=== PATIENT | female | born 1985 | race Caucasian/White ===

== ENCOUNTER 2017-01-09 08:51 | Outpatient (CLI) | payer MEDICAID ==
[~2017-01-09 08:51] MED LIST: BACTRIM DS 8001 TAB PO; CEPHALEXIN500 M1 PO; CLEOCIN HCL300 MG PO; NO HOME MEDICATIONS; NORCO 325 MG-51 TAB PO; PERCOCET 325 MG1 TA2 PO; PRENATAL1 TA5 PO
[2017-01-09] MEDS ORDERED: PRENATAL (09:10)
[2017-01-09 09:15] VITALS: BP 127/61; PULSE 76; TEMP 97.6
== END 2017-01-09 09:45 | disposition home or self-care (01) ==
LOC: LDRO 08:51
DX: O99.89 Other specified diseases and conditions complicating pregnancy, childbirth and the puerperium (principal); R10.9 Unspecified abdominal pain; Z3A.00 Weeks of gestation of pregnancy not specified

== ENCOUNTER 2017-01-17 14:43 | Outpatient (CLI) | payer MEDICAID, OTHER ==
[~2017-01-17] VITALS: Ht 175.3 cm; Wt 151.8 kg
[~2017-01-17 14:43] MED LIST changes: +PRENATAL
[2017-01-17 14:56] VITALS: BP 124/80; PULSE 85; TEMP 98.1
[2017-01-17 15:00] VITALS: BP 124/80; PULSE 85; TEMP 98.1
[2017-01-17 15:15] LABS: BASO % 0.3 % (0.0-2.0); EOS # 0.1 (0.0-0.7); EOS % 0.6 % (0-4.0); GRAN # 7.6 (1.4-6.5); GRAN % 68.2 % (42.2-75.2); HEMATOCRIT 39.6 % (37.0-47.0); HEMOGLOBIN 13.4 g/dl (12.5-16.0); LYMPH # 2.6 (1.2-3.4); LYMPH % 23.3 % (20.0-51.0); MEAN CELL VOLUME 87 fl (80.0-100.0); MEAN CORPUSCULAR HEMOGLOBIN 30 pg (27.0-31.0); MEAN CORPUSCULAR HGB CONC 34 g/dl (33.0-37.0); MEAN PLATELET VOLUME 12.5 fl (7.4-10.4); MONO # 0.8 (0.1-0.6); MONO % 6.8 % (1.7-9.3); PLATELET COUNT 145 K/mm3 (130-400); RED BLOOD COUNT 4.53 M/mm3 (4.10-5.30); WHITE BLOOD COUNT 11.1 K/mm3 (4.8-10.8)
[2017-01-17 15:25] LABS: ADJUSTED CALCIUM 8.8 mg/dL (8.4-10.2); ALBUMIN 3.7 gm/dL (3.5-5.0); BILIRUBIN,TOTAL 0.6 mg/dL (0.0-1.0); CALCIUM 8.6 mg/dL (8.4-10.2); CREATININE, serum 0.62 mg/dL (0.52-1.25); POTASSIUM 3.6 mmol/L (3.4-5.0); TOTAL PROTEIN 6.8 gm/dL (6.4-8.2)
[2017-01-17 15:41] VITALS: BP 120/61; PULSE 73
== END 2017-01-17 15:52 | disposition home or self-care (01) ==
LOC: LDRO 14:43
PROVIDERS: Obstetrics & Gynecology
DX: O26.893 Other specified pregnancy related conditions, third trimester (principal); R03.0 Elevated blood-pressure reading, without diagnosis of hypertension; Z3A.37 37 weeks gestation of pregnancy

== ENCOUNTER 2017-01-22 06:51 | Inpatient (IN) | payer OTHER, MEDICAID ==
[2017-01-22] VITALS (34 sets, daily range): BP systolic 97–146; BP diastolic 52–105; PULSE 59–115; TEMP 97.8–98.5
[~2017-01-22] VITALS: Ht 175.3 cm; Wt 106.4 kg
[2017-01-22 07:31] LABS: BASO % 0.3 % (0.0-2.0); EOS # 0.1 (0.0-0.7); EOS % 0.7 % (0-4.0); GRAN # 10.1 (1.4-6.5); GRAN % 75.7 % (42.2-75.2); HEMATOCRIT 39.8 % (37.0-47.0); HEMOGLOBIN 13.5 g/dl (12.5-16.0); LYMPH % 14.8 % (20.0-51.0); MEAN CELL VOLUME 88 fl (80.0-100.0); MEAN CORPUSCULAR HEMOGLOBIN 30 pg (27.0-31.0); MEAN CORPUSCULAR HGB CONC 34 g/dl (33.0-37.0); MEAN PLATELET VOLUME 12.9 fl (7.4-10.4); MONO # 1.1 (0.1-0.6); MONO % 7.9 % (1.7-9.3); PLATELET COUNT 152 K/mm3 (130-400); RED BLOOD COUNT 4.54 M/mm3 (4.10-5.30); REDCELL DISTRIBUTION WIDTH-CV 13.1 % (11.5-14.5); WHITE BLOOD COUNT 13.4 K/mm3 (4.8-10.8)
[2017-01-23 07:10] LABS: HEMOGLOBIN 12.4 g/dl (12.5-16.0)
[2017-01-23] MEDS ORDERED: IBU600 MG PO (08:09)
[2017-01-23] MEDS ORDERED: PERCOCET 325 MG1 TA2 PO (08:09)
[2017-01-23 09:00] VITALS: BP 109/74; PULSE 77; TEMP 98.4
[2017-01-23 12:49] VITALS: BP 110/64; PULSE 70; TEMP 98.1
== END 2017-01-23 14:45 | disposition home or self-care (01) | DRG 775 ==
LOC: LDRO → OB 06:51 → LDR 06:51 → OB 15:15 → EDSTATUS 01-25 09:20 → LDRO 01-25 10:47
PROVIDERS: Obstetrics & Gynecology
PROC: 10E0XZZ Delivery of Products of Conception, External Approach (ICD-10-PCS; principal; 2017-01-22)
PROC: 3E033VJ Introduction of Other Hormone into Peripheral Vein, Percutaneous Approach (ICD-10-PCS; 2017-01-22)
DX: O36.0130 Maternal care for anti-D [Rh] antibodies, third trimester, not applicable or unspecified (principal); Z3A.39 39 weeks gestation of pregnancy; Z37.0 Single live birth
CPT/HCPCS: J2791; J7120

== ENCOUNTER 2018-03-10 05:52 | Outpatient (CLI) | payer OTHER, MEDICAID ==
[~2018-03-10] VITALS: Ht 175.3 cm; Wt 105.5 kg
[~2018-03-10 05:52] MED LIST changes: +IBU600 MG PO
[2018-03-10 06:20] VITALS: BP 120/73; PULSE 83; TEMP 97.9
== END 2018-03-10 07:10 | disposition home or self-care (01) ==
LOC: LDRO 05:52
DX: Z34.83 Encounter for supervision of other normal pregnancy, third trimester (principal); Z3A.38 38 weeks gestation of pregnancy

== ENCOUNTER 2018-03-13 20:56 | Inpatient (IN) | payer OTHER, MEDICAID ==
[2018-03-13] VITALS (7 sets, daily range): BP systolic 118–154; BP diastolic 62–89; PULSE 76–105; TEMP 98.3
[~2018-03-13] VITALS: Ht 172.7 cm; Wt 105.5 kg
[2018-03-13 21:44] LABS: BASO % 0.3 % (0.0-2.0); EOS # 0.1 (0.0-0.7); EOS % 0.5 % (0-4.0); GRAN # 9.1 (1.4-6.5); HEMATOCRIT 37.3 % (37.0-47.0); LYMPH # 2.7 (1.2-3.4); LYMPH % 20.8 % (20.0-51.0); MEAN CELL VOLUME 87 fl (80.0-100.0); MEAN CORPUSCULAR HEMOGLOBIN 30 pg (27.0-31.0); MEAN CORPUSCULAR HGB CONC 35 g/dl (33.0-37.0); MEAN PLATELET VOLUME 12.8 fl (7.4-10.4); MONO % 7.8 % (1.7-9.3); PLATELET COUNT 153 K/mm3 (130-400); RED BLOOD COUNT 4.28 M/mm3 (4.10-5.30); REDCELL DISTRIBUTION WIDTH-CV 12.8 % (11.5-14.5)
[2018-03-14] VITALS (10 sets, daily range): BP systolic 108–131; BP diastolic 60–69; PULSE 57–82; TEMP 97.8–98.4
[2018-03-15 08:00] VITALS: BP 112/87; PULSE 72; TEMP 97.7
[2018-03-15] MEDS ORDERED: IBU800 M1 PO (10:30)
== END 2018-03-15 11:25 | disposition home or self-care (01) | DRG 775 ==
LOC: LDRO 20:56 → LDR 21:20 → LDRO 21:59 → OB 03-14 02:30
PROVIDERS: Obstetrics & Gynecology
PROC: 10E0XZZ Delivery of Products of Conception, External Approach (ICD-10-PCS; principal; 2018-03-13)
DX: O99.824 Streptococcus B carrier state complicating childbirth (principal); Z37.0 Single live birth; Z3A.39 39 weeks gestation of pregnancy
CPT/HCPCS: J0690; J2590; J2791; J2795; J7120